=== PATIENT | female | born 1975 | race African-American/Black ===

== ENCOUNTER 2020-02-15 07:29 | Emergency (ER) | payer OTHER ==
[2020-02-15 07:39] VITALS: BP 149/83; TEMP 99.7; BMI 48.4
[2020-02-15] MEDS ORDERED: ACETAMINOPHEN 650 MG/20.3 ML ORAL SOLUTION (CUPS) ONE (07:39)
--- OUTSIDE RECORDS SUMMARY | 2020-02-15 07:41 | XMS ---
:1975 Author Organization [facility] Support Name Relationship Address Phone UE Unavailable Unavailable Unavailable ELISA SAUCEDO MOTHER [address] [place] [address] JOANNE BROWN BR NA NA Unavailable [place] [address] JAMSHID ESQUIVEL OT [address] [place] [address] elisa saucedo Unavailable Unavailable Unavailable Re-disclosure Warning The records that you are about to access may contain information from federally- assisted alcohol or drug abuse programs. If such information is present, then the following federally mandated warning applies: This information has been disclosed to you from records protected by federal confidentiality rules (42 CFR part 2). The federal rules prohibit you from making any further disclosure of this information unless further disclosure is expressly permitted by the written consent of the person to whom it pertains or as otherwise permitted by 42 CFR part 2. A general authorization for the release of medical or other information is NOT sufficient for this purpose. The Federal rules restrict any use of the information to criminally investigate or prosecute any alcohol or drug abuse patient.The records that you are about to access may contain highly sensitive health information, the redisclosure of which is protected by Article 27-F of the [facility] Public Health law. If you continue you may haveaccess to information: Regarding HIV / AIDS; Provided by facilities licensed or operated by the [facility] Office of Mental Health; or Provided by the [facility] Office for People With Developmental Disabilities. If such information is present, then the following [facility] mandated warning applies: This information has been disclosed to you from confidential records which are protected by state law. State law prohibits you from making any further disclosure of this information without the specific written consent of the person to whom it pertains, or as otherwise permitted by law. Any unauthorized further disclosure in violation of state law may result in a fine or residential sentence or both. A general authorization for the release of medical or other information is NOT sufficient authorization for further disclosure. Allergies and Adverse Reactions Type Description Substance Reaction Status Data Source(s ) Drug allergy Motrin Drug allergy LIP SWELLING Active eCW3 ([facility]) Encounters Encounter Providers Location Date Indications Data Source(s ) Emergency H 03/07/2019 09:52:00 [facility] EDT - 03/07/2019 Cente r 05:59:00 PM EDT Patient discharged. Outpatient [facility] 12/03/2018 12:00:00 AM eCW3 ([facility] A28 EDT - 12/03/2018 12:00:00 [facility]) AM EDT Medications Medication Brand Start Product Dose Route Administrative Pharmacy [facility] Indications Reaction Description Data Name Date Form Instructions Instructions Source(s) Triamcinolo Triamc .0 suspend Triamc inolon eCW3 ne inolon 2017 {appl ed e Acetonide ([facility] on Acetonide 5 e 12:00: icati 0.5 % Rive r MG/ML Aceton 00 AM on_to Health Topical marlene EST _affe Care) Cream 0.5 % cted_ Triamcinolo area} ne Acetonide 0.5 % Acetaminoph acetam 2 complet Sabino nt en 325 MG inophe ed [facility]azar Oral Tablet n 325 Medical acetaminoph mg Center en 325 mg Tablet Tablet, , Ordered By: Marie Graham d By: Santos Garcia FNPDirectio Maggie ns: 2 McInty tablet oral re, every six FNPDir hours PRN ection pain s: 2 tablet oral every six hours PRN pain 4 ML Bicill suspend Bicillin L-A eC W3 penicillin in L-A ed [id number] ([facility] son G [id number] UNIT/4ML [facility] benzathine 0 Health [id number] UNIT/4 Care) UNT/ML ML Prefilled Syringe [Bicillin L-A] Bicillin L-A [id number] UNIT/4ML Insurance Providers Payer name Policy type Policy ID Covered Covered libertarian's Policy P alexx / Coverage libertarian ID relationship to Maldon[place] Inf ormation type maldonado [facility] MEDICAID [id number] SP [id number] COMM PLAN UNITED O [id number] 01 [id number] HEALTHCARE OPD UNITED O [id number] HEALTHCARE OPD SHAMAR Lizarraga [id number] Problems, Conditions, and Diagnoses Code Display Name Description Problem Type Effective Data Dates Source(s) M19.90 Arthritis of left Arthritis of left Problem 12/02/2017 eCW3 ([place] knee knee 12:00:00 [facility]) R73.03 Prediabetes Prediabetes Problem 09/25/2017 eCW3 ([place] 12:00:00 AM [facility]) E55.9 Vitamin D Vitamin D Problem 06/19/2017 eCW3 ([place] deficiency deficiency 12:00:00 [facility]) A53.9 Syphilis Syphilis Problem 06/19/2017 eCW3 ([place] 12:00:00 [facility]) E66.01 Morbid obesity Morbid obesity Problem 06/13/2017 eCW3 ( [place] 12:00:00 [facility]) 719.48 Joint pain Joint pain, other Problem eCW3 ([facility]) 558.9 Gastroenteritis Gastroenteritis Problem eCW3 ([facility]) V74.1 Tuberculosis TB (diagnostic Problem eCW3 ( dson screening screening) [facility]) V65.44 HIV counseling HIV COUNSELING Problem eCW3 ( [facility]) V70.0 General examination ROUTINE MEDICAL Problem eCW3 ([place] of patient EXAM [facility]) V72.40 test TEST Problem eCW3 ( [place] [facility] V72.6 Laboratory test LABORATORY Problem eCW3 ([facility] EXAMINATION [facility]) 278.01 Morbid obesity Morbid obesity Problem eCW3 ( [facility]) J45.909 Unspecified asthma, UNSPECIFIED ASTHMA, Diagnosis 019 [facility] uncomplicated UNCOMPLICATED 09:52:00 AM Medical EDT Center R10.30 Lower abdominal LOWER ABDOMINAL Diagnosis 03/07/2019 Heather t [facility] pain, unspecified PAIN, UNSPECIFIED 09:52:00 AM Medical EDT Center Results ID Date Data Source Liver 03/07/2019 12:33:00 PM EDT [facility] Profile.[id number] Name Value Range Interpretation Description Data Sup porting Code Source(s) Document(s ) Alkaline 38-126 <content Saint phosphatase styleCode="Bold"> [facility] [Enzymatic Alkaline Medical activity/volume] Phosphatase (ALP) Cente r in Serum or Plasma </content>67 IU/L<content styleCode="Italic s"> (38-126 IU/L)</content> Alanine 7-30 <content Saint aminotransferase styleCode="Bold"> Gu[facility] hs [Enzymatic Alanine Medical activity/volume] Aminotransferase Center in Serum or Plasma (ALT) </content>12 IU/L<content styleCode="Italic s"> (7-30 IU/L)</content> Aspartate 14-36 <content [facility] aminotransferase styleCode="Bold"> [facility] hs [Enzymatic Aspartate Medical activity/volume] Aminotransferase Center in Serum or Plasma (AST) </content>16 IU/L<content styleCode="Italic s"> (14-36 IU/L)</content> Bilirubin.total 0.2-1.3 <content Saint [Mass/volume] in styleCode="Bold"> Gu[facility] hs Serum or Plasma Bilirubin Total Medical </content>0.3 Center MG/DL<content styleCode="Italic s"> (0.2-1.3 MG/DL)</content> Albumin 3.5-5.0 <content Saint [Mass/volume] in styleCode="Bold"> [facility] hs Serum or Plasma Albumin Medical </content>3.7 Center G/DL<content styleCode="Italic s"> (3.5-5.0 G/DL)</content> UNK 0.0-0.3 <content Saint styleCode="Bold"> [facility] Bilirubin, Direct Medical </content>< 0.2 Center MG/DL<content styleCode="Italic s"> (0.0-0.3 MG/DL)</content> ID Date Data Source GFR(Creatinine).[id number] 03/07/2019 12:33:00 PM EDT Sabino nt [facility] 0-0400 Name Value Range Interpretation Code Description Data Charlene rce(s) Supporting Document(s ) UNK > 60 <content [facility] styleCode="Bold"> Medical Cent er EGFR </content>173 GFR<content styleCode="Italic s"> (> 60 GFR)</content> ID Date Data Source ELIZABETH.[id number] 03/07/2019 12:33:00 PM EDT [facility] -0400 Name Value Range Interpretation Description Data Sup porting Code Source(s) Document(s ) Lipase 23-300 <content [facility] [Enzymatic styleCode="Bold Medical activity/vo ">Lipase Center lume] in </content>24 Serum or IU/L<content Plasma styleCode="Ital ics"> (23-300 IU/L)</content> UNK 30-110 <content [facility] styleCode="Bold Medical ">Amylase Center </content>41 IU/L<content styleCode="Ital ics"> (30-110 IU/L)</content> ID Date Data Source CardiacMarkers.[id number] 03/07/2019 12:33:00 PM EDT [facility] -0400 Name Value Range Interpretation Description Data Sup porting Code Source(s) Document(s ) Troponin < 0.034 <content Saint I.cardiac styleCode="Bold [facility] [Mass/volume ">Troponin I Medical ] in Serum </content>< Center or Plasma 0.012 NG/ML<content styleCode="Ital ics"> (< 0.034 NG/ML)</content > ID Date Data Source [facility].[id number] 03/07/2019 12:33:00 PM EDT [facility] Name Value Range Interpretation Description Data Sup porting Code Source(s) Document(s ) Sodium 137-145 <content Saint [Moles/volume] in styleCode="Bold"> [facility] Serum or Plasma Sodium Medical </content>137 Center MEQ/L<content styleCode="Italic s"> (137-145 MEQ/L)</content> Potassium 3.5-5.3 <content Saint [Moles/volume] in styleCode="Bold"> [facility] Serum or Plasma Potassium Medical </content>4.2 Center MEQ/L<content styleCode="Italic s"> (3.5-5.3 MEQ/L)</content> Chloride 98-107 <content Saint [Moles/volume] in styleCode="Bold"> [facility] Serum or Plasma Chloride Medical </content>106 Center MEQ/L<content styleCode="Italic s"> (98-107 MEQ/L)</content> Calcium 8.4-10. <content Saint [Mass/volume] in 2 styleCode="Bold"> Guillermo hs Serum or Plasma Calcium Medical </content>9.2 Center MG/DL<content styleCode="Italic s"> (8.4-10.2 MG/DL)</content> UNK > 60 <content Saint styleCode="Bold"> [facility] EGFR Medical </content>173 Center GFR<content styleCode="Italic s"> (> 60 GFR)</content> Carbon dioxide, 22-30 <content Saint total styleCode="Bold"> [facility] [Moles/volume] in Carbon Dioxide Medical Serum or Plasma </content>27 Center MEQ/L<content styleCode="Italic s"> (22-30 MEQ/L)</content> UNK 7-17 <content Saint styleCode="Bold"> [facility] BUN </content>8 Medical MG/DL<content Center styleCode="Italic s"> (7-17 MG/DL)</content> Glucose 74-106 <content Saint [Mass/volume] in styleCode="Bold"> Guillermo hs Serum or Plasma Glucose Medical </content>102 Center MG/DL<content styleCode="Italic s"> (74-106 MG/DL)</content> Creatinine 0.5-1.3 <content Saint [Mass/volume] in styleCode="Bold"> Guillermo hs Serum or Plasma Creatinine Medical </content>0.5 Center MG/DL<content styleCode="Italic s"> (0.5-1.3 MG/DL)</content> Aspartate 14-36 <content Saint aminotransferase styleCode="Bold"> Gu[facility] hs [Enzymatic Aspartate Medical activity/volume] Aminotransferase Center in Serum or Plasma (AST) </content>16 IU/L<content styleCode="Italic s"> (14-36 IU/L)</content> Alkaline 38-126 <content [facility] phosphatase styleCode="Bold"> [facility] [Enzymatic Alkaline Medical activity/volume] Phosphatase (ALP) Cente r in Serum or Plasma </content>67 IU/L<content styleCode="Italic s"> (38-126 IU/L)</content> Bilirubin.total 0.2-1.3 <content Saint [Mass/volume] in styleCode="Bold"> Guillermo hs Serum or Plasma Bilirubin Total Medical </content>0.3 Center MG/DL<content styleCode="Italic s"> (0.2-1.3 MG/DL)</content> Alanine 7-30 <content Saint aminotransferase styleCode="Bold"> Gu[facility]ermo hs [Enzymatic Alanine Medical activity/volume] Aminotransferase Center in Serum or Plasma (ALT) </content>12 IU/L<content styleCode="Italic s"> (7-30 IU/L)</content> Albumin 3.5-5.0 <content Saint [Mass/volume] in styleCode="Bold"> Guillermo hs Serum or Plasma Albumin Medical </content>3.7 Center G/DL<content styleCode="Italic s"> (3.5-5.0 G/DL)</content> ID Date Data Source Liver 03/07/2019 11:03:00 AM EDT [facility] Profile.[id number] Name Value Range Interpretation Description Data Sup porting Code Source(s) Document(s ) Aspartate <content [facility] aminotransferase styleCode="Bold"> Gu[facility] hs [Enzymatic Aspartate Medical activity/volume] Aminotransferase Center in Serum or Plasma (AST) </content>Test not performed. IU/L (Reference Range: not available)
Alanine <content Saint aminotransferase styleCode="Bold"> Guillermo hs [Enzymatic Alanine Medical activity/volume] Aminotransferase Center in Serum or Plasma (ALT) </content>Test not performed. IU/L (Reference Range: not available)
Bilirubin.total <content Saint [Mass/volume] in styleCode="Bold"> Guillermo hs Serum or Plasma Bilirubin Total Medical </content>Test Center not performed. MG/DL (Reference Range: not available)
Alkaline <content Saint phosphatase styleCode="Bold"> [facility] [Enzymatic Alkaline Medical activity/volume] Phosphatase (ALP) Cente r in Serum or Plasma </content>Test not performed. IU/L (Reference Range: not available)
UNK <content Saint styleCode="Bold"> [facility] Bilirubin, Direct Medical </content>Test Center not performed. MG/DL (Reference Range: not available)
Albumin <content Saint [Mass/volume] in styleCode="Bold"> Guillermo hs Serum or Plasma Albumin Medical </content>Test Center not performed. G/DL (Reference Range: not available)
ID Date Data Source HematologyRou.[id number] 03/07/2019 11:03:00 AM EDT Sabino nt [facility] 0400 Name Value Range Interpretation Description Data Sup porting Code Source(s) Document(s ) Leukocytes 4.4-11.0 Above high <content Saint [#/volume] in normal styleCode="Bold [facility] Blood by ">White Blood Medical Automated count Cell Count Center </content>12.75 KCUMM H<content styleCode="Ital ics"> (4.4-11.0 KCUMM)</content > Erythrocytes 4.0-5.1 Below low normal <content Saint [#/volume] in styleCode="Bold [facility] Blood by ">Red Blood Medical Automated count Cell Count Center </content>3.83 MCUMM L<content styleCode="Ital ics"> (4.0-5.1 MCUMM)</content > Hemoglobin 12.3-16. Below low normal <content Saint [Mass/volume] in 0 styleCode="Bold [facility]azar Blood ">Hemoglobin Medical </content>11.0 Center G/DL L<content styleCode="Ital ics"> (12.3-16.0 G/DL)</content> Erythrocyte mean 80.0-100 <content Saint corpuscular .0 styleCode="Bold [facility]azar volume [Entitic ">Mean Medical volume] by Corpuscular Center Automated count Volume </content>89.6 FL<content styleCode="Ital ics"> (80.0-100.0 FL)</content> Hematocrit 36.0-46. Below low normal <content Saint [Volume 0 styleCode="Bold [facility]azar Fraction] of ">Hematocrit Medical Blood by </content>34.3 Center Automated count % L<content styleCode="Ital ics"> (36.0-46.0 %)</content> Erythrocyte mean 26.0-34. <content Saint corpuscular 0 styleCode="Bold Salazar hemoglobin ">Mean Medical [Entitic mass] Corposcular Center by Automated Hemoglobin count </content>28.7 PG<content styleCode="Ital ics"> (26.0-34.0 PG)</content> Erythrocyte 11.5-14. Above high <content Saint distribution 5 normal styleCode="Bold [facility]azar width [Ratio] by ">Red Cell Medical Automated count Distribution Center Width </content>15.7 % H<content styleCode="Ital ics"> (11.5-14.5 %)</content> Platelet mean 8.0-11.0 Above high <content Saint volume [Entitic normal styleCode="Bold [facility] volume] in Blood ">Mean Platelet Medical by Automated Volume Center count </content>11.5 FL H<content styleCode="Ital ics"> (8.0-11.0 FL)</content> Erythrocyte mean 32.0-37. <content Saint corpuscular 0 styleCode="Bold Salazar hemoglobin ">Mean Corpus. Medical concentration Hgb Center [Mass/volume] by Concentration Automated count (MCHC) </content>32.1 G/DL<content styleCode="Ital ics"> (32.0-37.0 G/DL)</content> UNK 0 <content Saint styleCode="Bold Salazar ">Nucleated Red Medical Blood Cell Center </content>0.0 /100<content styleCode="Ital ics"> (0 /100)</content> Platelets 130-400 Above high <content Saint [#/volume] in normal styleCode="Bold [facility] Blood by ">Platelet Medical Automated count Count Center </content>435 KCUMM H<content styleCode="Ital ics"> (130-400 KCUMM)</content > UNK 0.0 <content Saint styleCode="Bold Salazar ">Nucleated Red Medical Blood Cell Center Count </content>0.00 KCUMM<content styleCode="Ital ics"> (0.0 KCUMM)</content > ID Date Data Source GFR(Creatinine).[id number] 03/07/2019 11:03:00 AM EDT [facility] 0-0400 Name Value Range Interpretation Code Description Data Charlene rce(s) Supporting Document(s ) UNK <content [facility] styleCode="Bold"> Medical Cent er EGFR </content>Test not performed. GFR (Reference Range: not available)
ID Date Data Source MROUTINECCDA.[id number] 03/07/2019 11:03:00 AM EDT [facility] -0400 Name Value Range Interpretation Code Description Data Supporting Source(s) Document(s ) UNK <content [facility] styleCode="Bold Medical ">Amylase Center </content>Test not performed. IU/L (Reference Range: not available)
Lipase <content [facility] [Enzymatic styleCode="Bold Medical activity/vo ">Lipase Center lume] in </content>Test Serum or not performed. Plasma IU/L (Reference Range: not available)
ID Date Data Source CardiacMarkers.[id number] 03/07/2019 11:03:00 AM EDT [facility] -0400 Name Value Range Interpretation Description Data Sup porting Code Source(s) Document(s ) Troponin <content [facility] I.cardiac styleCode="Bold Medical [Mass/volume ">Troponin I Center ] in Serum </content>Test or Plasma not performed. NG/ML (Reference Range: not available)
ID Date Data Source BMP.[id number] 03/07/2019 11:03:00 AM T [facility] Name Value Range Interpretation Description Data Sup porting Code Source(s) Document(s ) Sodium <content Saint [Moles/volume] in styleCode="Bold"> Phillip phs Serum or Plasma Sodium Medical </content>Test Center not performed. MEQ/L (Reference Range: not available)
Potassium <content Saint [Moles/volume] in styleCode="Bold"> Phillip phs Serum or Plasma Potassium Medical </content>Test Center not performed. MEQ/L (Reference Range: not available)
Chloride <content Saint [Moles/volume] in styleCode="Bold"> [facility] phs Serum or Plasma Chloride Medical </content>Test Center not performed. MEQ/L (Reference Range: not available)
Creatinine <content Saint [Mass/volume] in styleCode="Bold"> Guillermo hs Serum or Plasma Creatinine Medical </content>Test Center not performed. MG/DL (Reference Range: not available)
Glucose <content Saint [Mass/volume] in styleCode="Bold"> Guillermo hs Serum or Plasma Glucose Medical </content>Test Center not performed. MG/DL (Reference Range: not available)
UNK <content Saint styleCode="Bold"> [facility] BUN Medical </content>Test Center not performed. MG/DL (Reference Range: not available)
Carbon dioxide, <content Saint total styleCode="Bold"> [facility] [Moles/volume] in Carbon Dioxide Medical Serum or Plasma </content>Test Center not performed. MEQ/L (Reference Range: not available)
Calcium <content Saint [Mass/volume] in styleCode="Bold"> Guillermo hs Serum or Plasma Calcium Medical </content>Test Center not performed. MG/DL (Reference Range: not available)
Alkaline <content [facility] phosphatase styleCode="Bold"> [facility] [Enzymatic Alkaline Medical activity/volume] Phosphatase (ALP) Cente r in Serum or Plasma </content>Test not performed. IU/L (Reference Range: not available)
Aspartate <content [facility] aminotransferase styleCode="Bold"> Guillermo hs [Enzymatic Aspartate Medical activity/volume] Aminotransferase Center in Serum or Plasma (AST) </content>Test not performed. IU/L (Reference Range: not available)
Alanine <content Saint aminotransferase styleCode="Bold"> Guillermo hs [Enzymatic Alanine Medical activity/volume] Aminotransferase Center in Serum or Plasma (ALT) </content>Test not performed. IU/L (Reference Range: not available)
UNK <content Saint styleCode="Bold"> [facility] EGFR Medical </content>Test Center not performed. GFR (Reference Range: not available)
Albumin <content Saint [Mass/volume] in styleCode="Bold"> Guillermo hs Serum or Plasma Albumin Medical </content>Test Center not performed. G/DL (Reference Range: not available)
Bilirubin.total <content Saint [Mass/volume] in styleCode="Bold"> Guillermo hs Serum or Plasma Bilirubin Total Medical </content>Test Center not performed. MG/DL (Reference Range: not available)
ID Date Data Source Urinalysis.[id number] 03/07/2019 10:55:00 AM EDT Sabino nt [facility] 0 Name Value Range Interpretation Description Data Sup porting Code Source(s) Document(s ) Color of Urine YELLOW <content Saint styleCode="Tommy Corderos d">Color, Medical Urine Center </content>YELL OW <content styleCode="Azalea lics"> (YELLOW )</content> UNK CLEAR <content Saint styleCode="Tommy Corderos d">Urine Medical Clarity Center </content>MAXIMUS R <content styleCode="Azalea lics"> (CLEAR )</content> Glucose NEGATIVE <content Saint [Mass/volume] styleCode="[facility] in Urine by d">Urine Medical Test strip Glucose Center </content>NEGA TIVE MG/DL<content styleCode="Azalea lics"> (NEGATIVE MG/DL)</conten t> Specific 1.015-1.02 <content Saint gravity of 5 styleCode="[facility] Urine by Test d">Urine Medical strip Specific Center [place] </content>1.01 5 <content styleCode="Azalea lics"> (1.015-1.025 )</content> Hemoglobin NEGATIVE <content Saint [Presence] in styleCode="[facility] Urine by Test d">Urine Blood Medical strip </content>NEGA Center TIVE <content styleCode="Azalea lics"> (NEGATIVE )</content> Ketones NEGATIVE <content Saint [Mass/volume] styleCode="Tommy Corderos in Urine by d">Urine Medical Test strip Ketone Center </content>NEGA TIVE MG/DL<content styleCode="Azalea lics"> (NEGATIVE MG/DL)</conten t> UNK NEGATIVE <content Saint styleCode="Tommy Croderos d">Urine Medical Bilirubin Center </content>NEGA TIVE <content styleCode="Azalea lics"> (NEGATIVE )</content> pH of Urine by 4.5-8.0 <content Saint Test strip styleCode="Tommy Corderos d">Urine pH Medical </content>7.0 Center <content styleCode="Azalea lics"> (4.5-8.0 )</content> Urobilinogen 0.2-1.0 <content Saint [Units/volume] styleCode="Tommy Corderos in Urine by d">Urine Medical Test strip Urobilinogen Center </content>0.2 MG/DL<content styleCode="Azalea lics"> (0.2-1.0 MG/DL)</conten t> Nitrite NEGATIVE <content Saint [Presence] in styleCode="Tommy Corderos Urine by Test d">Urine Medical strip Nitrite Center </content>NEGA TIVE <content styleCode="Azalea lics"> (NEGATIVE )</content> Protein NEGATIVE <content Saint [Mass/volume] styleCode="Tommy Corderos in Urine by d">Urine Medical Test strip Protein Center </content>NEGA TIVE MG/DL<content styleCode="Azalea lics"> (NEGATIVE MG/DL)</conten t> Leukocyte NEGATIVE <content Saint esterase styleCode="Tommy Corderos [Presence] in d">Urine Medical Urine by Test Leukocyte Center strip </content>NEGA TIVE <content styleCode="Azalea lics"> (NEGATIVE )</content> Procedure Social History Code Duration Value Status Description Data Source(s ) Smoking 03/07/2019 Denies Ever completed Denies Ever Smoked [facility] 10:37:00 AM EDT Smoked Medical C enter Smoking 03/07/2019 Denies Ever completed Denies Ever Smoked [facility] 10:08:00 AM EDT Smoked Medical C enter Smoking 03/07/2019 Denies Ever completed Denies Ever Smoked [facility] 09:58:00 AM EDT Smoked Medical C enter Smoking 12/03/2018 Never Smoker completed Never Smoker eCW3 ([facility] 12:00:00 AM EDT [facility]) Never Smoker completed Never Smoker eCW3 ([facility]) Smoking Unknown if ever completed Unknown if ever [facility]cat[facility] smoked smoked Medical Center Vital Signs ID Date Data Source UNK Name Value Range Interpretation Code Description Data Source(s) Body temperature 36.737587 36.141419 [facility] Respiratory rate 18 /min 18 /min [facility] Oxygen saturation 99 % 99 % [facility] Arterial blood [facility] by Pulse oximetry Heart rate 86 /min 86 /min [facility] Diastolic blood 92 mm[Hg] 92 mm[Hg] [facility] Systolic blood 147 mm[Hg] 147 mm[Hg] [facility] Body temperature 36.422041 36.455030 [facility] Respiratory rate 18 /min 18 /min [facility] Oxygen saturation 98 % 98 % [facility] blood [facility] by Pulse oximetry Heart rate 86 /min 86 /min [facility] Diastolic blood 92 mm[Hg] 92 mm[Hg] [facility] Systolic blood 147 mm[Hg] 147 mm[Hg] [facility] Body temperature 36.319004 36.749515 [facility] Respiratory rate 19 /min 19 /min [facility] Oxygen saturation 99 % 99 % [facility] Arterial blood [facility] by Pulse oximetry Heart rate 88 /min 88 /min [facility] Diastolic blood 70 mm[Hg] 70 mm[Hg] [facility] Systolic blood 130 mm[Hg] 130 mm[Hg] [facility] Body temperature 36.554904 36.179012 [facility] Respiratory rate 18 /min 18 /min [facility] Oxygen saturation 98 % 98 % [facility] by Pulse oximetry Heart rate 92 /min 92 /min [facility] Diastolic blood 75 mm[Hg] 75 mm[Hg] [facility] Systolic blood 131 mm[Hg] 131 mm[Hg] [facility] pressure [facility] Diastolic blood 83 mm[Hg] 83 mm[Hg] eCW3 ([facility]) Systolic blood 131 mm[Hg] 131 mm[Hg] eCW3 ([facility]) Body temperature 98.0 [degF] 98.0 [degF] eCW3 ( [facility]) Body mass index 55.61 kg/m2 55.61 kg/m2 eCW3 ( oma (BMI) [Ratio] [facility]) Body weight 324 [lb_av] 324 [lb_av] eCW3 ([facility]) Body height 64 [in_i] 64 [in_i] eCW3 ([facility]) Patient Treatment Plan of Care Planned Activity Planned Date Details Description Data Source (s) Acetaminophen [address] [facility]
[2020-02-15] MEDS ORDERED: ACETAMINOPHEN 160 MG/5 ML *Children Solution PO ONE (07:43)
--- NOTE | 2020-02-15 07:49 | PDOC ---
History of Present Illness - General Chief Complaint: Sore Throat Stated Complaint: FEVER/SORE THROAT Time Seen by Provider: 02/15/20 07:43 History Source: Patient - History of Present Illness Timing/Duration: reports: other Past History - Medical History Allergies/Adverse Reactions: Allergies Allergy/AdvReac Type Severity Reaction Status Date / Time No Allergy Information Allergy Verified 02/15/20 07:36 Available Home Medications: Ambulatory Orders Acetaminophen [Tylenol] 650 mg PO Q6H #30 capsule 02/15/20 Amoxicillin/Potassium Clav [Amox-Clav 875-125 mg Tablet] 1 each PO BID #14 tablet 02/15/20 - Reproductive History Is Patient Now?: No - Psycho-Social/Smoking History Smoking History: Never smoked Review of Systems - Review of Systems Constitutional: Yes: Malaise HEENTM: Yes: Throat Pain *Physical Exam - Vital Signs Last Vital Signs Temp Pulse Resp BP Pulse Ox 99.7 F H 113 H 18 149/83 98 02/15/20 07:36 02/15/20 07:36 02/15/20 07:36 02/15/20 07:36 02/15/20 07:36 - Physical Exam General Appearance: Yes: Appropriately Dressed. No: Apparent Distress HEENT: positive: EOMI, RYDER, Normal Voice, TMs Normal, Other (b/l tonsillar swelling w/ exudative lesions, uvula midline). negative: Scleral Icterus (R), Scleral Icterus (L), Muffled/Hoarse voice Neck: positive: Supple. negative: Lymphadenopathy (R), Lymphadenopathy (L) Respiratory/Chest: negative: Respiratory Distress Integumentary: positive: Dry, Warm Neurologic: positive: Fully Oriented, Alert, Normal Mood/Affect Medical Decision Making - Medical Decision Making 02/15/20 07:47 44-year-old female history of diabetes, morbid obesity here with malaise with sore throat and chills that started 5 days after receiving the flu shot. No cough, shortness of breath, loss of taste or smell. Not currently taking anything for her symptoms. Patient with temperature of 99.7 and tachycardic at 114 at triage, 106 on repeat without any intervention, with bilateral tonsillar enlargement and exudates suspicious for strep. Will treat empirically and dc w/ contact precautions Discharge - Discharge Information Problems reviewed: Yes Clinical Impression/Diagnosis: Pharyngitis Qualifiers: Pharyngitis/tonsillitis etiology: unspecified etiology Qualified Code(s): J02.9 - Acute pharyngitis, unspecified Condition: Good Disposition: HOME - Additional Discharge Information Prescriptions: Amoxicillin/Potassium Clav [Amox-Clav 875-125 mg Tablet] 1 each PO BID #14 tablet Acetaminophen [Tylenol] 650 mg PO Q6H #30 capsule - Follow up/Referral Referrals: Reina Perez MD [Primary Care Provider] - - Patient Discharge Instructions Patient Printed Discharge Instructions: Strep Throat Additional Instructions: Take medications as directed Throw away toothbrush 3 days into taking antibiotics - Post Discharge Activity
[2020-02-15 07:51] VITALS: PULSE 104
== END 2020-02-15 07:52 | disposition home or self-care (01) ==
LOC: JER 07:29
DX: J02.9 Acute pharyngitis, unspecified (principal)
CPT/HCPCS: 99283-25